=== PATIENT | female | born 1960 | race Caucasian/White ===

== ENCOUNTER 2018-06-21 09:26 | Outpatient (CLI) | payer OTHER ==
--- NOTE | 2018-06-22 14:37 | Ultrasound Report ---
Procedure Date: 06/21/2018 Accession Number: [id number] / [id number] Procedure: US - Ext Limited Non Vascular CPT Code: FULL RESULT: EXAM: RIGHT LOWER EXTREMITY ULTRASOUND - LIMITED EXAM DATE: 06/21/2018 10:09 AM. CLINICAL HISTORY: Palpable lump and pain in the plantar aspect of the right foot x1 month. COMPARISON: None. TECHNIQUE: Real-time scanning was performed with static images obtained. FINDINGS: In the superficial subcutaneous fat plantar aspect of the right foot at the site of palpable abnormality indicated by the patient, there is an ovoid heterogeneously hypoechoic structure within the superficial subcutaneous fat. This measures 1.8 x 0.4 x 1.0 cm. The margins are lobular and well defined. No internal or peripheral vascularity. The abnormality did not appear to contact the underlying muscle or other deep structures. IMPRESSION: Small ovoid solid avascular lesion in the superficial subcutaneous fat in the plantar aspect of the foot corresponding to the palpable abnormality indicated by the patient. The appearance is nonspecific. It could represent nodular fasciitis, a granular cell tumor, or resolving sequela of trauma or inflammation. No fluid collection identified. RADIA
== END 2018-06-21 09:27 | disposition home or self-care (01) ==
LOC: DI 09:26
PROVIDERS: ATTEND Podiatrist
DX: M79.671 Pain in right foot (principal); L98.8 Other specified disorders of the skin and subcutaneous tissue
CPT/HCPCS: 76882

== ENCOUNTER 2019-05-17 18:03 | Emergency (ER) | payer OTHER ==
--- NOTE | 2019-05-17 20:33 | ED Physician Documentation ---
PD HPI OPHTHO - Stated complaint Stated Complaint: LFT EYE BLEED - Chief complaint Chief Complaint: Heent - History obtained from History obtained from: Patient - History of Present Illness Timing - onset: Today Timing - duration: Hours (3) Timing - details: Gradual onset Pain level max: 0 Pain level now: 0 Location: Left Associated symptoms: Other (floaters in her vision). No: Redness, Swelling, Tearing, Discharge, Matting, FB sensation, Photophobia, Double vision, Decreased vision, Loss of vision, Headache Contributing factors: Wears glasses. No: Exposed to conjunctivitis, Recent URI, FB, UV light (welding etc), Chemical exposure, acid, Chemical exposure, base, Blunt trauma, Penetrating trauma, Irrigated CARD FILER, Wears contacts, Work related Recently seen: Not recently seen Review of Systems Constitutional: denies: Fever, Chills Eyes: denies: Loss of vision, Photophobia GI: denies: Nausea, Vomiting : denies: Dysuria Skin: denies: Rash Musculoskeletal: denies: Neck pain, Back pain Neurologic: denies: Headache PD PAST MEDICAL HISTORY - Past Medical History Past Medical History: Yes Cardiovascular: None Respiratory: Asthma Neuro: None Endocrine/Autoimmune: Type 2 diabetes, HyPOthyroidism GI: None PMP: None : None HEENT: None Psych: None Musculoskeletal: None Derm: None - Past Surgical History Past Surgical History: No HEENT: Other - Allergies Allergies/Adverse Reactions: Allergies Allergy/AdvReac Type Severity Reaction Status Date / Time aspirin AdvReac Emesis Verified 05/17/19 18:14 - Social History Does the pt smoke?: No Smoking Status: Never smoker Does the pt drink ETOH?: Yes Does the pt have substance abuse?: No - Immunizations Immunizations are current?: Yes - POLST Patient has POLST: No PD ED PE NORMAL - Vitals Vital signs reviewed: Yes - General General: Alert and oriented X 3, No acute distress, Well developed/nourished - HEENT HEENT: PERRL, Moist mucous membranes, Other (Can see clearly to the back of the eye bilaterally. Ultrasound of the left eye does reveal some floating densities, no definite retinal detachment visualized. Fovea is intact.) - Neck Neck: Supple, no meningeal sign - Cardiac Cardiac: RRR, Strong equal pulses - Respiratory Respiratory: No respiratory distress, Clear bilaterally - Derm Derm: Warm and dry - Neuro Neuro: Alert and oriented X 3 - Psych Psych: Normal mood, Normal affect Results - Vitals Vitals: Vital Signs - 24 hr 05/17/19 05/17/19 18:10 20:49 Temperature 36.3 C L 36.3 C L Heart Rate 73 62 Respiratory 19 18 Rate Blood Pressure 154/88 H 179/97 H O2 Saturation 97 97 Oxygen O2 Source Room air PD MEDICAL DECISION MAKING - ED course Complexity details: considered differential, d/w patient ED course: 59-year-old female with floaters in the left eye. No evidence of retinal detachment. Normal pupil. Normal ocular exam other than the ultrasound which shows floaters. She has an appointment with her carrier blower in the morning. We will have her follow-up there for further care. Patient counseled regarding signs and symptoms for which I believe and urgent re-evaluation would be necessary. Patient with good understanding of and agreement to plan and is comfortable going home at this time This document was made in part using voice recognition software. While efforts are made to proofread this document, sound alike and grammatical errors may occur. Departure - Departure Disposition: 01 Home, Self Care Clinical Impression: Floater, vitreous Qualifiers: Laterality: left Qualified Code(s): H43.392 - Other vitreous opacities, left eye Condition: Good Instructions: Flashes and Floaters Follow-Up: VALDEMAR CALDERON [Primary Care Provider] - Comments: Follow up with Dr. Dietrich' office in the morning in [place]. Return if you worsen. Avoid NSAIDs, alcohol and aspirin. Discharge Date/Time: 05/17/19 20:52
[2019-05-17 20:50] VITALS: BP 179/97
== END 2019-05-17 20:52 | disposition home or self-care (01) ==
LOC: ED 18:03
DX: H43.392 Other vitreous opacities, left eye (principal); E11.9 Type 2 diabetes mellitus without complications
CPT/HCPCS: 99281; 99282

== ENCOUNTER 2021-02-05 07:00 | Outpatient (CLI) | payer OTHER | END 2021-02-05 23:59 | disposition home or self-care (01) | LOC: COV 07:00 | PROVIDERS: ATTEND Internal Medicine | DX: Z01.812 Encounter for preprocedural laboratory examination (principal); Z20.822 Contact with and (suspected) exposure to COVID-19 ==

== ENCOUNTER 2021-03-06 12:46 | Outpatient (CLI) | payer OTHER | END 2021-03-06 12:47 | disposition home or self-care (01) | LOC: COV 12:46 | PROVIDERS: ATTEND Ophthalmology | DX: Z01.812 Encounter for preprocedural laboratory examination (principal); Z20.822 Contact with and (suspected) exposure to COVID-19 ==

== ENCOUNTER 2021-05-26 07:00 | Outpatient (CLI) | payer OTHER | END 2021-05-26 23:59 | disposition home or self-care (01) | LOC: COV 07:00 | PROVIDERS: ATTEND Internal Medicine | DX: Z01.812 Encounter for preprocedural laboratory examination (principal); Z91.89 Other specified personal risk factors, not elsewhere classified; Z20.822 Contact with and (suspected) exposure to COVID-19 ==